=== PATIENT | male | born 1955 | race Caucasian/White ===

== ENCOUNTER 2016-10-18 09:43 | Inpatient (IN) | payer MEDICARE ==
[~2016-10-18] VITALS: Ht 177.8 cm; Wt 77.1 kg
[2016-10-18] MEDS ORDERED: ATOR80TA PO (09:54)
[2016-10-18] MEDS ORDERED: MEMA10TA PO (09:54)
[2016-10-18] MEDS ORDERED: ASPI81TA44 PO (09:54)
[2016-10-18] MEDS ORDERED: ACET-2154 PO (09:54)
[2016-10-18] MEDS ORDERED: QUET25TA PO (09:54)
[2016-10-18] MEDS ORDERED: DONE10TA44 PO (09:54)
[2016-10-18] MEDS ORDERED: IV NS 1000 ML 1,000 ML IV ONE ×2 (10:00→11:00)
[2016-10-18 10:23] LABS: BASOPHILS % (AUTO) 0.2 % (0.0-2.0); EOSINOPHILS # (AUTO) 0.2 K/uL (0.0-0.7); EOSINOPHILS % (AUTO) 1.8 % (0.0-7.0); HEMATOCRIT 42.8 % (40-50); HEMOGLOBIN 14.4 G/DL (14.0-18.0); LYMPHOCYTES # (AUTO) 1.3 K/UL (0.8-4.8); LYMPHOCYTES % (AUTO) 14.8 % (20.5-51.5); MEAN CORPUSCULAR HEMOGLOBIN 31.3 UUG (27.0-31.0); MEAN CORPUSCULAR HGB CONC 34 g/dL (32.0-37.0); MEAN CORPUSCULAR VOLUME 92.7 FL (82.0-92.0); MONOCYTES # (AUTO) 0.5 K/UL (0.1-1.30); MONOCYTES % (AUTO) 5.4 % (0.0-11.0); NEUTROPHILS # (AUTO) 6.8 K/UL (1.8-8.9); NEUTROPHILS % (AUTO) 77.8 % (38.5-71.5); PLATELET COUNT (AUTO) 193 K/UL (150-450); RED BLOOD CELL COUNT(AUTO) 4.62 MIL/UL (4.7-6.1); WHITE BLOOD COUNT (AUTO) 8.8 K/UL (4.0-11.2)
[2016-10-18 10:34] LABS: CREATININE 0.9 mg/dL (0.6-1.3); POTASSIUM 4.6 mmol/L (3.5-5.1)
[2016-10-18 10:40] LABS: BILIRUBIN,TOTAL 0.5 mg/dL (0.2-1.0); TOTAL PROTEIN, SERUM 6.5 g/dL (6.4-8.2)
[2016-10-18 11:23] LABS: THYROID STIMULATING HORMONE 2.888 mIU/mL (0.358-3.740)
[2016-10-18 12:13] VITALS: BP 109/79
[2016-10-18] MEDS ORDERED: QUETIAPINE FUMARATE 25 MG TABLET PO PRN (13:00)
[2016-10-18] MEDS ORDERED: HYDROCODONE/APAP 5-325MG TABLET PO PRN (13:00)
[2016-10-18] MEDS ORDERED: ONDANSETRON 4 MG/2 ML VIAL IV PRN (13:00)
[2016-10-18] MEDS ORDERED: MAGNESIUM HYDROXIDE 30 ML LIQUID UDC PO PRN (13:00)
[2016-10-18] MEDS ORDERED: LACT1TAB12 PO (14:48)
[2016-10-18] MEDS ORDERED: MINO50TA PO (14:48)
[2016-10-18] MEDS ORDERED: CALC-555 GT (14:48)
[2016-10-18 15:04] VITALS: BP_SYST 108; BP_SYST 95; BP_SYST 98; BP_DIAS 65; BP_DIAS 68; BP_DIAS 74
[2016-10-18 16:00] VITALS: BP 98/62
[2016-10-18] MEDS: IV NS 1000 ML 1,000 ML IV PRN (18:23)
[2016-10-18] MEDS: ATORVASTATIN 40 MG TABLET PO SCH (19:56)
[2016-10-18 20:19] VITALS: BP 109/62
[2016-10-19 00:19] VITALS: BP 104/66
[2016-10-19] MEDS: IV NS 1000 ML 1,000 ML IV PRN ×2 (03:38→17:22)
[2016-10-19 04:00] VITALS: BP 110/68
--- NOTE | 2016-10-19 07:00 | NUR ---
PT IS LAYING IN BED COMFORTABLY. PT'S SON BY THE BEDSIDE. PT IS CALM AND COOPERATIVE, TENDS TO BE FORGETFUL. AXO X1, NO S/S OF RESPIRATORY DISTRESS NOTED. NO PAIN REPORTED, IV INTACT/PATENT. ALL SAFETY NEEDS ARE MET. WILL CONTINUE TO MONITOR.
[2016-10-19 07:06] LABS: BASOPHILS % (AUTO) 0.6 % (0.0-2.0); EOSINOPHILS # (AUTO) 0.2 K/uL (0.0-0.7); EOSINOPHILS % (AUTO) 2.5 % (0.0-7.0); HEMATOCRIT 44.2 % (40-50); HEMOGLOBIN 15.2 G/DL (14.0-18.0); LYMPHOCYTES # (AUTO) 1.6 K/UL (0.8-4.8); LYMPHOCYTES % (AUTO) 21.9 % (20.5-51.5); MEAN CORPUSCULAR HEMOGLOBIN 32.3 UUG (27.0-31.0); MEAN CORPUSCULAR HGB CONC 34 g/dL (32.0-37.0); MEAN CORPUSCULAR VOLUME 94.1 FL (82.0-92.0); MONOCYTES # (AUTO) 0.5 K/UL (0.1-1.30); MONOCYTES % (AUTO) 6.5 % (0.0-11.0); NEUTROPHILS # (AUTO) 5.1 K/UL (1.8-8.9); NEUTROPHILS % (AUTO) 68.5 % (38.5-71.5); PLATELET COUNT (AUTO) 208 K/UL (150-450); WHITE BLOOD COUNT (AUTO) 7.4 K/UL (4.0-11.2)
[2016-10-19 07:26] LABS: CREATININE 0.8 mg/dL (0.6-1.3); MAGNESIUM 1.7 mg/dL (1.8-2.4); PHOSPHOROUS 2.8 mg/dL (2.5-4.9); POTASSIUM 4.2 mmol/L (3.5-5.1)
[2016-10-19] MEDS: ASPIRIN EC 81 MG TABLET.DR PO SCH (08:34)
[2016-10-19] MEDS: MEMANTINE HCL 10 MG TABLET PO SCH (08:35)
[2016-10-19] MEDS ORDERED: MAGNESIUM OXIDE 400 MG TABLET PO ONE (09:30)
[2016-10-19 11:54] VITALS: BP 126/73
[2016-10-19 14:12] LABS: *BILIRUBIN,URIN NEGATIVE (NEGATIVE); *BLOOD, URINE NEGATIVE (NEGATIVE); *CLARITY,URINE CLEAR (CLEAR); *COLOR,URINE STRAW (YELLOW); *KETONES,URINE NEGATIVE (NEGATIVE); *PROTEIN,URINE NEGATIVE (NEGATIVE); *UROBILINOGEN,URINE 0.2 E.U./dl (NORMAL); LEUKOCYTE ESTERASE ,URINE NEGATIVE (NEGATIVE); NITRITE, URINE NEGATIVE (NEGATIVE); UGLUCOSE NEGATIVE (NEGATIVE)
[2016-10-19 14:19] LABS: BACTERIA,URINE FEW /HPF (NONE SEEN); RBC,URINE NONE SEEN /HPF (0-3); SQUAMOUS EPITHELIAL CELL,UR FEW /HPF (NONE SEEN); WBC,URINE NONE SEEN /HPF (0-3)
[2016-10-19 14:22] LABS: *AMPHETAMINE, URINE NEGATIVE (NEGATIVE); *BARBITURATE, URINE NEGATIVE (NEGATIVE); *CANNABINOID, URINE NEGATIVE (NEGATIVE); *COCCAINE, URINE NEGATIVE (NEGATIVE); *OPIATE, URINE NEGATIVE (NEGATIVE); *PHENCYCLIDINE SCREEN,URINE NEGATIVE (NEGATIVE)
[2016-10-19 16:04] VITALS: BP 124/68
[2016-10-19 19:00] VITALS: BP 120/68
--- NOTE | 2016-10-19 19:29 | NUR ---
NO CHANGES NOTED. ALL SAFETY NEEDS ARE MET.
[2016-10-19] MEDS: ATORVASTATIN 40 MG TABLET PO SCH (20:00)
--- NOTE | 2016-10-19 22:00 | NUR ---
Patient more alert & oriented, denies dizziness & headache. Had shower today. Tele NSR.
[2016-10-20 00:20] VITALS: BP 119/72
[2016-10-20 04:00] VITALS: BP 108/60
--- NOTE | 2016-10-20 07:00 | NUR ---
PT IS LAYING IN BED COMFORTABLY. NO S/S OF RESPIRATORY DISTRESS NOTED. NO PAIN REPORTED. ALL SAFETY NEEDS ARE MET. WILL CONTINUE TO MONITOR.
--- NOTE | 2016-10-20 07:00 | NUR ---
No signs of sezures noted. Patient rested well, no acute resp. distress. Vital signs are stable. For EEG today. Tele NSR
[2016-10-20] MEDS: IV NS 1000 ML 1,000 ML IV PRN (07:18)
[2016-10-20 07:59] LABS: CREATININE 0.8 mg/dL (0.6-1.3); MAGNESIUM 1.8 mg/dL (1.8-2.4); POTASSIUM 3.9 mmol/L (3.5-5.1)
[2016-10-20] MEDS: ASPIRIN EC 81 MG TABLET.DR PO SCH (08:19)
[2016-10-20] MEDS: MEMANTINE HCL 10 MG TABLET PO SCH (08:19)
[2016-10-20 12:03] VITALS: BP 118/59
--- NOTE | 2016-10-20 15:30 | NUR ---
PAGED DR. YO IN REGARDS OF THE EEG RESULTS, PER [employer] BRAKE RIGGER "WILL PAGE DR. YO IN REGARDS OF GETTING EEG RESULTS AND D/C INFORMATION ON THE PT". INFORMED JODI TOTH NP TO ADVICE THE PT. PER WINNIE SIMENTAL "WE NEED EEG RESULTS".
[2016-10-20 16:05] VITALS: BP 117/72
--- NOTE | 2016-10-20 18:12 | NUR ---
FAMILY REQUESTING TO KNOW IF THE PT IS GETTING DISCHARGED. INFORMED WINNIE TOTH IN REGARDS OF THE FAMILY REQUESTING INFORMATION. ADVISED THE FAMILY THAT WE ARE AWAITING ON DR. YO.
[2016-10-20] MEDS ORDERED: DOCU-141 PO (18:48)
--- NOTE | 2016-10-20 18:59 | NUR ---
PT IS BEING DISCHARGED, PRESCRIPTION IS GIVEN TO THE SON OF THE FAMILY. COPY IS PLACED IN THE CHART. NO S/S OF RESPIRATORY DISTRESS NOTED. ALL SAFETY NEEDS ARE MET. NO PAIN NOTED.
--- NOTE | 2016-10-20 20:14 | NUR ---
Family in room. Hepjovanni d/cd. Discharge instruction copy provided. No acute resp distress. Assisted down to the lobby. Discharged.
== END 2016-10-20 20:05 | disposition home or self-care (01) | DRG 641 ==
LOC: ER 09:43 → TELE 11:27 → MED 10-20 14:55
PROVIDERS: ADMIT Nurse Practitioner Acute Care; ATTEND Nurse Practitioner Acute Care
DX: E86.0 Dehydration (principal); R55 Syncope and collapse; F02.80 Dementia in other diseases classified elsewhere, unspecified severity, without behavioral disturbance, psychotic disturbance, mood disturbance, and anxiety; G30.9 Alzheimer's disease, unspecified; E78.5 Hyperlipidemia, unspecified; M19.90 Unspecified osteoarthritis, unspecified site; F41.9 Anxiety disorder, unspecified; Z79.899 Other long term (current) drug therapy; E83.42 Hypomagnesemia; R00.1 Bradycardia, unspecified; G31.83 Neurocognitive disorder with Lewy bodies
CPT/HCPCS: 36415; 70030-TC; 70450; 71010; 80307; 83735; 84100; 84443; 85025; 85610; 93005; 93307; 95819; A4663; J7030